=== PATIENT | male | born 1945 | race Caucasian/White ===

== ENCOUNTER 2016-09-07 08:19 | Inpatient (IN) | payer MEDICARE, OTHER ==
--- NOTE | 2016-08-31 12:12 | NUR ---
JOINT CAMP Patient attended Joint Camp at [facility] in preparation for total knee replacement on September. DPOA is Melody Butts and he is not the primary caregiver for anyone else. Patient is from home and there is step in two different places. will be the one to help when returning home and will be the one to transport on day of discharge. Patient has never had Home Health services or been to [facility], patient has done outpatient physical therapy with [facility]. Patient has bath bench, elevated toilet seat and walker at home already.
[~2016-09-07] VITALS: Ht 167.6 cm; Wt 91.6 kg
[2016-09-07] VITALS (15 sets, daily range): BP systolic 89–128; BP diastolic 44–66; PULSE 52–97; RESP 10–18; O2SAT 95–99
--- NOTE | 2016-09-07 06:56 | PCM.HPANE ---
Patient Data Surgeon Admitting Provider: Attending Provider:Tc Nolasco MD Primary Care Physician:Yang Silverio MD Other Provider:[facility] Reason for Visit Left Knee Arthritis Ht/WT & BMI Height (Feet): 5 Height (Inches): 6 Weight (Kilograms): 92.42 Body Mass Index 32.00 Allergies Coded Allergies: No Known Allergies (Unverified Allergy, Unknown, 09/06/16) Past Anesthesia History Anesthesia History: Denies:: Abnormal Airway, Anesthesia Reactions, Difficult Intubation, Fam Anesthesia Reaction, Fam Malignant Hypertherm, Malignant Hyperthermia Diabetes History Hx Diabetes?: No MRSA MRSA: No Medications Blood Thinner: Aspirin Last Dose Blood Thinner: Sep 01, 2016 Hypertension Medication: Yes (Lisinopril/HCTZ) Reported Medications Lisinopril/HCTZ 20-25 mg (Zestoretic 20-25 mg)1 Each Tablet1 Each PO DAILY Ref 0 09/01/16 Atorvastatin (Lipitor)10 Mg Tab10 Mg PO DAILY Ref 0 09/01/16 Gabapentin 100 Mg [id number] Mg PO BID 30 Days Ref 0 09/01/16 Aspirin 81 Mg [id number] Mg PO DAILY Ref 0 09/01/16 History History of ENT Problems?: Yes HEENT History: Positive for:: Hearing Problem Denies:: Abnormal Airway Cataracts Difficult Intubation Dysphagia Glaucoma Sinus Problem TMJ Denture Type: None Teeth Condition: Within Normal Limits Hx of Heart Problems?: No Cardiovascular History: Positive for:: Hypertension Denies:: AICD Heart Murmur Irregular Heartbeat Pacemaker Peripheral Vascular Rheumatic Fever Thrombophlebitis Valvular Heart Disease Hx of Respiratory Problem?: No Respiratory History: Denies:: Pneumonia Hx Neurologic Problems?: No Hx of GI Problems?: No Hx of Problems?: No Male Hx: Positive for:: Prostate Problems (BPH) Denies:: Scrotal Mass Testicular Surgery Skin History: Denies:: History Skin Disorders? Pressure Ulcers Hx Musculoskeletal Problems?: Yes Musculoskeletal History: Positive for:: Degenerative Joint (Lt knee) Rheumatoid Arthritis (lt knee) Denies:: Fibromyalgia Joint Replacement Musculoskeletal Trauma Myasthenia Gravis Osteoarthritis Systemic Lupus Hx of Psycho/Social Problems?: No Hx Surgeries?: Yes ( bilateral Rotator cuff repair and carpal tunnel) Hx Any Other Health Problems?: Yes Other History: Positive for:: Hospitalization (2013) Denies:: Cancer Endocrine Disease Thyroid Disease History Blood Transfusions: Positive for:: Accept Blood Products? Denies:: Blood Transfuse Reaction Blood Transfusions Hx Diabetes: No Hx Alcohol Use: Yes (3-4 glasses of wine a week)Hx Substance Use: No Stop/Bang S-Snoring: Do You Snore Loudly: No T-Tired: feel tired, fatigued: No O-Obsered: Observed not breath: No P-Blood Pressure: treated: Yes B- Body Mass Index > 35 kg/m2: No A- Age over 50: Yes N- Neck Large Circumference: Yes G- Gender Male: Yes SHIRA Total Score: 4 Risk Assessment Category Category 1A: Patient has history of documented sleep apnea, and HAS NOT received any narcotic, sedative or anesthesia administration during this stay. Category 1B: Patient has history of documented sleep apnea, and HAS received any narcotic , sedative or anesthesia administration during this stay Category 2: Patient has SUSPECTED Obstructive Sleep Apnea, and HAS received any narcotic , sedative or anesthesia administration during this stay. Category 3: Patient has SUSPECTED Obstructive Sleep Apnea and HAS NOT received narcotic, sedative or anesthesia administration during this stay. Category 4: Outpatient in Procedural Areas with known sleep apnea or who screen positive for High Risk via the STOP/BANG questionnaire. Exam Exam General Appearance: Alert, Oriented X3, Cooperative, No Acute Distress HEENT/AIRWAY: MP 2, Mouth Opening (wnl) Lungs: Clear to Auscultation Heart: Exam Unremarkable Plan Impression Patient chart reviewed, patient interviewed and anesthestic plan with risks, benefits, and alternatives discussed, and informed consent obtained. ASA Physical Status: ASA2 Mod Systemic Disease Anesthetic Plan: Regional Block, SAB Bene/Risks/Altern/Consents: Yes HP Complete Prior to Induction: Yes Deuce Viera MD Sep 07, 2016 06:56
[~2016-09-07 08:19] MED LIST: ASPI-973 PO; ATRV10T PO; Bupivacaine Liposome 1.3% 20 mL Inj NERVEBLOCK SCH; CeFAZolin Inj 2 GM in IV Premix 1 EACH IV SCH; GABA-500 PO; LISI-608 PO; Lactated Ringer's 1,000 ML IV SCH; Tranexamic Acid 100 mg/mL 10 mL Inj IV SCH; Vancomycin Dose per Pharmacist XX ONE
[2016-09-07] MEDS: Vancomycin Inj 1,250 MG in 0.9% Sodium Chloride 250 ML IV SCH ×2 (09:00→10:09)
[2016-09-07] MEDS ORDERED: Lactated Ringer's 1,000 ML IV ONE ×3 (09:08→11:35)
[2016-09-07] MEDS ORDERED: 0.9% Sodium Chloride 100 ML ONE (10:01)
[2016-09-07] MEDS ORDERED: Gentamicin 40 mg/mL 2 mL Inj IRRIGATION ONE (10:23)
[2016-09-07] MEDS ORDERED: Bupivacaine Liposome 1.3% 20 mL Inj INFILTRATE ONE (10:24)
[2016-09-07] MEDS ORDERED: Lactated Ringer's 500 ML IV PRN (10:31)
[2016-09-07] MEDS ORDERED: Lactated Ringer's 1,000 ML IV SCH (10:31)
[2016-09-07] MEDS ORDERED: Phenylephrine 10,000 mCg/mL Inj IVPUSH PRN (10:35)
[2016-09-07] MEDS ORDERED: Dexamethasone 4 mg/mL Inj IVPUSH PRN (10:35)
[2016-09-07] MEDS ORDERED: Atropine 0.4 mg/mL Inj IVPUSH PRN (10:35)
[2016-09-07] MEDS ORDERED: Labetalol 5 mg/mL 4 mL Inj IV PRN (10:35)
[2016-09-07] MEDS ORDERED: Ondansetron 2 mg/mL 2 mL Inj IVPUSH PRN ×2 (10:35→12:00)
[2016-09-07] MEDS ORDERED: hydrALAZINE 20 mg/mL Inj IVPUSH PRN (10:35)
[2016-09-07] MEDS ORDERED: HYDROmorphone 1 mg/mL Inj IVPUSH PRN (10:35)
[2016-09-07] MEDS ORDERED: fentaNYL-PF 50 mCg/mL 2 mL Inj IVPUSH PRN (10:35)
[2016-09-07] MEDS ORDERED: EPHEDrine Sulfate 50 mg/mL Inj IVPUSH PRN (10:35)
[2016-09-07] MEDS ORDERED: Bupivacaine-MPF 0.25% 30 mL Inj INFILTRATE ONE (10:50)
[2016-09-07] MEDS ORDERED: Magnesium Hydroxide 10 mL Oral Concentration PO PRN (12:00)
[2016-09-07] MEDS ORDERED: Ketorolac 15 mg/mL Inj IVPUSH PRN (12:00)
[2016-09-07] MEDS ORDERED: HYDROmorphone 2 mg/mL Inj IVPUSH PRN (12:00)
[2016-09-07] MEDS ORDERED: diphenhydrAMINE 25 mg Capsule PO PRN (12:00)
[2016-09-07] MEDS ORDERED: Sodium Biphos-Phos 133 mL Enema RECTAL PRN (12:00)
[2016-09-07] MEDS ORDERED: Polyethylene Glycol (PEG) 17 Gm Powder PO PRN (12:00)
[2016-09-07] MEDS ORDERED: Vancomycin Dose per Pharmacist XX ONE (12:00)
--- NOTE | 2016-09-07 12:34 | OP ---
[address] [address] OPERATIVE REPORT PATIENT: CLARK ACE : 1945 MR#: [id number] ADMIT: 09/07/2016 JOB ID: [id number] DATE OF SURGERY: 09/07/2016 SURGEON: Tc Nolasco MD RUNNER MAN: Winston Kent PA-C. Personnel Research Scientist required due to the complexity of the operation. PREOPERATIVE DIAGNOSIS(ES): Advanced osteoarthritis, left knee. POSTOPERATIVE DIAGNOSIS(ES): Advanced osteoarthritis, left knee. PROCEDURE: Total knee arthroplasty. INDICATIONS: Severe progressive disability associated with advanced arthritis uncontrolled by conservative treatment options. The patient wishes to proceed with a total knee replacement. The patient understands and accepts the potential for risks and complications, which include but are not limited to infection, thromboembolic neurovascular events, as well as the potential for implant failure. DESCRIPTION OF PROCEDURE: The patient was prepped and draped in the usual sterile fashion. An anteromedial approach was made. The patella was subluxed laterally, cut transversely, sized to a 35 mm patella. A patellar protection plate was utilized. A drill hole was placed in the distal femur and a 5 degree valgus distal femoral cut was made. The external rotation tool was utilized, femoral sizing jig, and the femur was sized to an 8. Chamfer cutting block fixed in appropriate position. Rotation and drill holes and chamfer cuts were made. The tibia was subsequently cut with the extramedullary tool and sized to an F tibial component, fixed in appropriate position and rotation. Drill and punch utilized. Trial reduction was performed and a 10 mm polyethylene was chosen. Excellent alignment and soft tissue tracking was noted. All meniscal tissue and osteophytes were carefully removed. Pressurized lavage, followed by pressurized cementation of the components. Excess cement was removed during the curing process. Final construct was assembled. Tourniquet let down. Hemostasis achieved. A deep Hemovac drain left. The wounds lavaged with diluted Betadine solution according to protocol. Deep closure with number #2 Quill deep followed by a 2-0 Vicryl, a 3-0, and a 4-0 intracuticular stitch. Patient tolerated the procedure well. There were no complications. Taken to recovery room in stable condition. Standard postoperative plan recommended.
--- NOTE | 2016-09-07 12:52 | PCM.ANEP1 ---
Post Anesthesia PACU Phase 1 Assessment Vital Signs Vital Signs Date Time Temp Pulse Resp B/P Pulse Ox O2 Delivery O2 Flow Rate FiO2 09/07/16 12:49 56 10 95/51 95 Room Air 09/07/16 12:43 18 95 09/07/16 12:40 60 11 94/48 97 Room Air 09/07/16 12:35 36.1 61 10 92/50 97 Room Air 09/07/16 12:30 64 13 94/51 95 Room Air 09/07/16 12:25 68 13 94/49 96 Room Air 09/07/16 12:20 67 15 97/45 96 Room Air 09/07/16 12:15 97 14 94/47 96 Room Air 09/07/16 12:11 12 95 09/07/16 12:10 36.3 71 15 89/44 95 Room Air 09/07/16 08:55 35.7 60 17 128/66 97 Room Air Anesthetic Administered: Regional Block, SAB Level of Alertness: Awake, talking GRACIA's with Equal Strength: No Pain: No Nausea or Vomiting: No CV Function & Hydration Stable: Yes Airway Device: Lungs: Normal Air Movement Dermatome Level: T10 (Umbilicus) PACU Phase 2 Assessment Complications: No Follow up Care: No Patient Instructions Provided: N/A Deuce Viera MD Sep 07, 2016 12:52
[2016-09-07 13:05] LABS: APPEARANCE,URINE HAZY (CLEAR,HAZY); COLOR,URINE STRAW (YELLOW); OCCULT BLOOD,URINE LARGE (NEGATIVE); UROBILINOGEN,URINE NORMAL (NORMAL)
[2016-09-07] MEDS ORDERED: fentaNYL-PF 50 mCg/mL 2 mL Inj ONE (13:08)
[2016-09-07] MEDS ORDERED: Ondansetron 2 mg/mL 2 mL Inj ONE (13:08)
[2016-09-07] MEDS ORDERED: Propofol 10,000 mCg/mL 20 mL Inj ONE (13:08)
[2016-09-07] MEDS ORDERED: Phenylephrine 10,000 mCg/mL Inj ONE (13:08)
--- NOTE | 2016-09-07 13:21 | DRSVH ---
PROCEDURE: X-RAY LEFT KNEE, ONE OR TWO VIEWS ([id number]) INDICATIONS: POST OPERATIVE LEFT KNEE SURGERY TECHNIQUE: 2 views of the knee acquired. COMPARISON: [facility], , XR KNEE ARTHRITIC SERIES , 08/02/2016, 8:36. FINDINGS: Bones: Patient is status post knee joint arthroplasty. Hardware components are in expected position s. Visualized bony structures are intact. Soft tissues: Overlying postoperative changes are noted including a joint effusion and surgical drai n. IMPRESSION: 1. Expected post-surgical changes status post left knee arthroplasty. Dictated by: Donell Martin M.D. on 09/07/2016 at 13:13 Approved by: Donell Martin M.D. on 09/07/2016 at 13:20
--- NOTE | 2016-09-07 15:00 | NUR ---
POST-OP Patient received from PACU via a hospital bed. IVF ongoing. Dressing in his L knee is CDI. Hemovac in his L knee is in place and clamped at this time. To be unclamped at 1700. IFC intact and draining to yellow colored UO. Patient denies pain/nausea/SOB. BLE numbness/tingling. Patient had a spinal and femoral block per report. Oriented to room and call light. Addendum: 09/07/16 at 1832 by ZEINAB GALVAN RN ACTIVITY Patient was able to get OOB and ambulated with SBA to the chair. Tolerated activity well. Hydrocodone/APAP 1 tab administered for complaints of pain. Patient rated his pain as 3/10, which is tolerable for him at this time. Tolerating liquids PO and his diet well. Denies nausea. No emesis noted. Hemovac was unclamped. Sanguinous output noted.
--- NOTE | 2016-09-07 15:58 | NUR ---
Evaluation completed. Please go to "Notes" then click on "Assessments and Notes" (bottom left corner of screen). Then select appropriate discipline tab on top of screen.
[2016-09-07] MEDS: HYDROcodone-APAP 5-325 mg Tablet PO PRN ×3 (16:30→22:59)
[2016-09-07] MEDS: CeFAZolin Inj 2 GM in IV Premix 1 EACH IV SCH (18:10)
[2016-09-07] MEDS: Sodium Chloride LOK Flush 10 mL Syringe IV SCH ×2 (18:10→21:36)
[2016-09-07] MEDS: Senna-Docusate 8.6-50 mg Tablet PO SCH (20:48)
[2016-09-07] MEDS ORDERED: Vancomycin Inj 1,250 MG in 0.9% Sodium Chloride 250 ML IV ONE (21:00)
[2016-09-08 00:23] VITALS: BP 103/59; PULSE 58; RESP 16; O2SAT 95
[2016-09-08] MEDS: CeFAZolin Inj 2 GM in IV Premix 1 EACH IV SCH (01:54)
[2016-09-08] MEDS: HYDROcodone-APAP 5-325 mg Tablet PO PRN ×2 (02:03→05:57)
--- NOTE | 2016-09-08 05:04 | NUR ---
MOBILITY Pt OOB to sink with FWW with minimal assistance only with IV tube/cath/hemovac. Pt has steady gait. Pt tolerated well with only slight increase in pain.
--- NOTE | 2016-09-08 05:27 | NUR ---
HEMOVAC Previous shift unclamped at 1700. At 0200, pt had 215 ml out of hemovac of sanguineous fluid over 9 hrs, for 23.9 ml/hr. Recheck at 0515, pt only had 30 ml out over 3.25 hrs, for 9.2 ml/hr. Will notify provider of >150 ml over 12 hrs. Addendum: 09/08/16 at 0538 by FLOR SUTTON RN Paged Dr. Nolasco, awaiting reply.
[2016-09-08 05:31] VITALS: BP 104/60; PULSE 61; RESP 18; O2SAT 97
[2016-09-08 07:54] LABS: BASOPHILS % (AUTO) 0.5 % (0-3); EOSINOPHILS % (AUTO) 5.1 % (0-5); Mean Corpuscular Hemoglobin 30.2 pg (27.0-35.0); Mean Corpuscular Volume 91.5 fL (81-100); NEUTROPHILS % (AUTO) 59.8 % (40-74); Platelet Count 182 bil/L (150-400)
[2016-09-08 08:43] VITALS: BP 112/64; PULSE 70; RESP 18; O2SAT 97
[2016-09-08] MEDS: Sodium Chloride LOK Flush 10 mL Syringe IV SCH ×2 (09:24→17:14)
[2016-09-08] MEDS: Senna-Docusate 8.6-50 mg Tablet PO SCH (09:25)
--- NOTE | 2016-09-08 11:35 | PCM.PNORTH ---
Subjective Date of Service: Sep 08, 2016 Visit Information: Reason for Visit Left Knee Arthritis Surgery/Surgery Date L TKA 09/07/16 Post-Op Day # Date of Admission: Sep 07, 2016 at 13:07 Hospital Day # Subjective Foundation awake and alert and sitting up beside his bed today. Patient has participated with formal physical therapy this morning with gait 30 feet. He is currently working on pain control and has moved from [place] [address] to [place] [address]. Wound drain is discontinued this morning and Thomas will also be discontinued this morning. I have discussed with patient likely discharge tomorrow and he does indicate that he has help at home and a ride to go home and is agreeable with this plan. Patient has arranged outpatient physical therapy to begin soon after discharge. Postop General: No Complaints, No Shortness of Breath, No Chest Pain, Good Appetite Pain Management: PO Objective Exam Objective Alert and oriented 3 and pleasant Interoperative dressing clean dry and intact Calf and thigh are soft and nontender Toe wiggle and sensation are intact at left lower extremity distally Hemovac drain is in place and working and is discontinued this morning. Thomas catheter is in place and working and will be discontinued this morning SCD is in place and working on right lower extremity Gait 30 feet with formal physical therapy this morning. Recommendation for discharge to home with outpatient PT. Vital Signs and I/O Vital Sign - Last Date Time Temp Pulse Resp B/P Pulse Ox O2 Delivery O2 Flow Rate FiO2 09/08/16 10:31 Room Air 09/08/16 08:43 36.6 70 18 112/64 97 Intake and Output 09/07/16 09/07/16 09/08/16 Cumulative From/Thru 15:00 23:00 07:00 09/01/16 16:02 - 09/08/16 05:25 Intake Total 2000 ml 400 ml 895 ml 3295 ml Output Total 270 ml 100 ml 795 ml 1165 ml Balance 1730 ml 300 ml 100 ml 2130 ml Intake Oral 400 ml 480 ml 880 ml IV Total 2000 ml 415 ml 2415 ml Output Urine Total 220 ml 100 ml 550 ml 870 ml Drainage Total 0 ml 245 ml 245 ml Estimated Blood Loss 50 ml 50 ml Lab & Micro Results Laboratory Tests Test 09/07/16 12:42 09/08/16 04:50 Urine Color Straw (YELLOW) Urine Appearance Hazy (CLEAR,HAZY) Urine pH 7.0 (5.0-8.0) Urine Specific [place] 1.005 (1.003-1.035) Urine Protein Negativemg/dL (NEG,TRACE) Urine Glucose (UA) Negativemg/dL (NEGATIVE) Urine Ketones Negativemg/dL (NEGATIVE) Urine Occult Blood Large (NEGATIVE) Urine Nitrite Negative (NEGATIVE) Urine Bilirubin Negative (NEGATIVE) Urine Urobilinogen Normalmg/dL (NORMAL) Urine Leukocyte Esterase Negative (NEGATIVE) Urine RBC 0-2/hpf (0-2) Urine WBC 0-5/hpf (0-5) Urine Epithelial Cells Occasional/hpf (NONE-MOD) Urine Crystals None seen (NONE SEEN) Urine Bacteria None/hpf (NONE-FEW) Urine Hyaline Casts None/lpf (NONE) Urine Granular Casts None seen (NONE SEEN) Urine Waxy Casts None seen (NONE SEEN) Urine Red Blood Cell Casts None seen (NONE SEEN) Urine White Blood Cell Casts None seen (NONE SEEN) Urine Mucus None seen (None Seen) Urine Trichomonas None seen (NONE SEEN) Urine Yeast None (NONE SEEN) Urinalysis Comment Transitional epi Urine Culture Reflexed Not indicated White Blood Count 7.9th/mm3 (3.8-10.1) Red Blood Count 3.51mil/mm3 (4.40-5.80) Hemoglobin 10.6g/dL (13.8-17.2) Hematocrit 32.1% (41.0-50.0) Mean Corpuscular Volume 91.5fL (81-100) Mean Corpuscular Hemoglobin 30.2pg (27.0-35.0) Mean Corpuscular Hemoglobin Concent 33.0% (32.0-37.0) Red Cell Distribution Width 12.1% (12.3-15.4) Platelet Count 182bil/L (150-400) Neutrophils (%) (Auto) 59.8% (40-74) Lymphocytes (%) (Auto) 23.3% (14-46) Monocytes (%) (Auto) 11.0% (4-12) Eosinophils (%) (Auto) 5.1% (0-5) Basophils (%) (Auto) 0.5% (0-3) Result Diagram: 09/08/16 0450 General Appearance: Alert, Oriented X3, Cooperative, No Acute Distress Extremities: No Compartment Syndrom Noted, Thigh & Calf Soft/Nontender Postop Sensory Motor: Distal Motor Intact, Movement in Toes, Distal Sensation Intact SURGICAL WOUND : Drain Location Body Site: Knee Wound Drainage Type: Hemovac Activity: Activity per PT, Ambulate with PT Catheters: Urethral 2 Way Thomas Assessment & Plan Impression Patient is a 71-year-old male seen today one day status post left total knee arthroplasty. He has been up with physical therapy and is doing well this time. Problems: Plan Postop day #1 from left total knee arthroplasty on 09/07/[address] Tc Nolasco. Continue weightbearing as tolerated on the left lower extremity using front Will Walker Continue formal physical therapy for mobility, gait and safety. Continue by mouth pain medication as needed with either hydrocodone or Percocet. Continue ASA 81 mg EC by mouth twice a day 6 weeks postop for DVT prophylaxis. Hemovac drain is discontinued this morning. Thomas catheter will be discontinued by nursing this morning. Interoperative dressing will be changed on postop day #2. Nursing please discontinue Thomas catheter this morning. Nursing please move patient to either [place] or Percocet, whichever is most effective for his pain control. Nursing please fit bilateral thigh-high SANYA hose. Right may be fit today and left should be fit tomorrow after dressing change. Follow up in 2 weeks at [facility] orthopedic clinic on prearranged appointment with [facility] provider for wound check and suture removal. Follow up in 6 weeks at [facility] orthopedic clinic on prearranged appointment with Dr. Tc Nolasco with left two-view x-rays on arrival. Anticipate discharge to home today or at latest tomorrow, 09/09/2016 with spouse as caregiver. VTE Prophylaxis: SCDs, SANYA Hose, Other (ASA 81 mg EC by mouth twice a day 6 weeks postop for DVT prophylaxis.) Say Gallo PA-C Sep 08, 2016 11:35
[2016-09-08] MEDS ORDERED: hydrOXYzine Pamoate 25 mg Capsule PO PRN (12:00)
[2016-09-08 12:45] VITALS: BP 119/67; PULSE 72; RESP 18; O2SAT 98
--- NOTE | 2016-09-08 13:19 | NUR ---
Social Work: Initial Assessment / Readiness for d/c Data: Pt is a 71 y/o male admitted for left knee arthritis. Pt's PCP is Dr Silverio, pt's insurance is Medicare with [employer] [facility]. EMR reviewed. Readmit score not listed. AIR CONDITIONING MECHANIC met with pt at bedside, role explained. Pt states that he lives in [place] with his in a single story home where he uses no DME. Pt drives, has no hx of HH or SNF, no LTC or VA benefits. Pt reports he has a walker and toilet lift at home and PT appointment set up. PT will see pt this afternoon and he may be ready for d/c after that. AIR CONDITIONING MECHANIC will continue to follow if needs arise. Assessment: Pt who is independent at baseline. Plan: Pt will d/c home via POV with spouse when medically stable, possible today. AIR CONDITIONING MECHANIC will continue to follow if needs arise. CHONG Alonzo Addendum: 09/08/16 at 1322 by MELVIN VELARDE Amended: Links added.
[2016-09-08] MEDS: oxyCODONE-Acetamin 5-325 mg Tablet PO PRN ×2 (13:44→17:42)
--- NOTE | 2016-09-08 16:20 | PCM.DIORTH ---
Ortho Discharge Instruction Date of Service: Sep 08, 2016 Dates of Hospitalization Date of Hospital Admission Sep 07, 2016 at 13:07 Providers Admitting Physician: Tc Nolasco MD Primary Care Physician: Yang Silverio MD Attending Physician: Tc Nolasco MD Diet Discharge Diet: No restrictions Activity Discharge Activity-General: Try not to overdue, Be up and about, Balance rest and activity, Elevate & ice extremity, Activity as pain allows, Activity as energy allows, No driving while taking narcotic Left Lower Extremity: Weight Bearing as tolerated Discharge Assist Device: Front Wheeled Walker Dressing and Incisional Care Discharge Dressing Care: Keep dressing clean, dry & intact, Allow Steri Stripes to fall off, Change soiled dressing Discharge Hygiene: May shower (patient may shower if the wound area is kept clean and dry with plastic leg or Saran wrap.), DO NOT soak incision under water , NO bathtub, hot tub or whirlpool Additional Instructions Discharge Instructions Postop day #1 from left total knee arthroplasty on 09/07/[address] Tc Nolasco. Continue weightbearing as tolerated on the left lower extremity using front Will Walker Continue formal physical therapy for mobility, gait and safety. Please begin formal physical therapy as soon as possible after discharge. Continue by mouth pain medication as needed with either Percocet and Vistaril. Continue ASA 81 mg EC by mouth twice a day 6 weeks postop for DVT prophylaxis. Hemovac drain is discontinued this morning. Thomas catheter will be discontinued by nursing this morning. Interoperative dressing is changed on postop day #1 prior to discharge. Patient and family are provided with additional dressing supplies. [place] dressings may be re-wet once a day for 2-3 days post discharge and then this strip of material may be discarded. You may continue to use the large ABDs pads and the physician at stocking until you are seen in the office in 2 weeks. If the wound remains clean and dry and is not uncomfortable you may go without a dressing if you wish. Nursing please discontinue Thomas catheter this morning. Nursing please fit bilateral thigh-high SANYA hose. Right may be fit today and left should be fit tomorrow after dressing change. Follow up in 2 weeks at [facility] orthopedic clinic on prearranged appointment with mid level provider for wound check and suture removal. Follow up in 6 weeks at [facility] orthopedic clinic on prearranged appointment with Dr. Tc Nolasco with left two-view x-rays on arrival. Anticipate discharge to home today or at latest tomorrow, 09/09/2016 with spouse as caregiver. Follow Up Plan Follow Up Plan Follow-up in 2 weeks, 6 weeks and 12 weeks postoperatively. Follow up when necessary in the interim. Follow-up Provider (F9): Say Gallo PA-C Mid-level Provider (F9): Tc Nolasco MD Follow-up appointment: Weeks (first follow-up in 2 weeks at [facility] orthopedic clinic on prearranged appointment.) Call your provider for: Fever, Chills, Shortness of breath, Drainage at incision Say Gallo PA-C Sep 08, 2016 16:20
[2016-09-08] MEDS ORDERED: DOCU-41 PO (16:24)
[2016-09-08] MEDS ORDERED: OXYC1TAB24 PO (16:24)
[2016-09-08] MEDS ORDERED: HYDR-3797 PO (16:24)
[2016-09-08] MEDS ORDERED: ASPI-973 PO (16:24)
--- NOTE | 2016-09-08 16:27 | PCM.DC.ORT ---
Discharge Summary Date of Service: Sep 08, 2016 Date of Hospital Admission: Sep 07, 2016 at 13:07 Date of Surgery: Sep 07, 2016 Date of Discharge: Sep 08, 2016 Reason for Hospitalization: Severe left knee osteoarthritis Procedures Performed: Left total knee arthroplasty Hospital Course: Patient was admitted to the preoperative care unit on 09/07/2016 and upon processing was taken to the operating room where his procedure was performed without incident. Patient was awakened and taken to the postoperative care unit and upon recovery was taken to the orthopedic care unit where he performed excellent gait distance on the first day and was cleared for discharge to home with family has caregivers. Problems: (1) Osteoarthritis Status: Acute ICD Code: M19.90 Disposition: Discharge to home with family has caregivers Orthopedic Follow up Plan: In Two Weeks in my clinic (follow-up in 2 weeks at [facility] orthopedic clinic on prearranged appointment) Discharge Instructions: Postop day #1 from left total knee arthroplasty on 09/07/[address] Tc Nolasco. Continue weightbearing as tolerated on the left lower extremity using front Will Walker Continue formal physical therapy for mobility, gait and safety. Please begin formal physical therapy as soon as possible after discharge. Continue by mouth pain medication as needed with either Percocet and Vistaril. Continue ASA 81 mg EC by mouth twice a day 6 weeks postop for DVT prophylaxis. Hemovac drain is discontinued this morning. Thomas catheter will be discontinued by nursing this morning. Interoperative dressing is changed on postop day #1 prior to discharge. Patient and family are provided with additional dressing supplies. [place] dressings may be re-wet once a day for 2-3 days post discharge and then this strip of material may be discarded. You may continue to use the large ABDs pads and the physician at stocking until you are seen in the office in 2 weeks. If the wound remains clean and dry and is not uncomfortable you may go without a dressing if you wish. Nursing please discontinue Thomas catheter this morning. Nursing please fit bilateral thigh-high SANYA hose. Right may be fit today and left should be fit tomorrow after dressing change. Follow up in 2 weeks at [facility] orthopedic clinic on prearranged appointment with mid level provider for wound check and suture removal. Follow up in 6 weeks at [facility] on prearranged appointment with Dr. Tc Nolasco with left two-view x-rays on arrival. Anticipate discharge to home today or at latest tomorrow, 09/09/2016 with spouse as caregiver. Management Plan: Patient will be seen at 2 weeks, 6 weeks and 12 weeks postoperatively. Patient will be seen when necessary in the interim. Aspirin (Aspirin) 81 Mg Tablet 81 MG PO BID Atorvastatin (Lipitor) 10 Mg Tab 10 MG PO DAILY Docusate Sodium (Colace) 100 Mg Capsule 100 MG PO BID Gabapentin (Gabapentin) 100 Mg Capsule 100 MG PO BID Hydroxyzine Pamoate (HydrOXYzine Pamoate) 25 Mg Capsule 25-50 MG PO Q6H PRN PRN restlessness Lisinopril/HCTZ 20-25 mg (Zestoretic 20-25 mg) 1 Each Tablet 1 EACH PO DAILY oxyCODONE-Acetaminophen 5-325 mg (oxyCODONE-Acetaminophen 5-325 mg) 1 Each Tablet 1 TAB PO Q4-6H PRN PRN For Pain Say Gallo PA-C Sep 08, 2016 16:27
[2016-09-08 17:22] VITALS: BP 110/68; PULSE 74; RESP 19; O2SAT 95
--- NOTE | 2016-09-08 18:10 | NUR ---
Discharge Pt to discharge to home with and daughter; A&Ox3, VSS, pn 05/12 per pt; 1 IV access discontinued; up with FWW and SBA in room. All personal belongings with patient at time of discharge. Pt given hard copy or Rx's, written and verbal discharge instructions with times and dosages of medications to be taken to which family and pt states understanding. Pt encouraged to apply NS to Silver dressing q daily, to change ABD q couple of days and to not submerge knee in water of any kind. Pt to f/u with Dr Nolasco in 2 wks at [facility], again in 6 weeks and again in 12 weeks. No restrictions on diet and activity as tolerated. Pt given ABD dressings, NS syringes and stocking net to cover. Thigh high compression hose ordered, fitted and placed on pt before discharge.
== END 2016-09-08 18:20 | disposition home or self-care (01) | DRG 470 ==
LOC: SAS 08:19 → EDUNIT# 10:30 → OSC 13:07
PROVIDERS: ADMIT Orthopaedic Surgery; ATTEND Orthopaedic Surgery
PROC: 0SRD0J9 Replacement of Left Knee Joint with Synthetic Substitute, Cemented, Open Approach (ICD-10-PCS; principal; 2016-09-07 10:30)
DX: M17.12 Unilateral primary osteoarthritis, left knee (principal); I10 Essential (primary) hypertension